=== PATIENT | male | born 1990 | race Caucasian/White ===

== ENCOUNTER 2017-11-15 13:07 | Emergency (ER) | payer SELFPAY ==
[2017-11-15 13:38] LABS: POC GLUCOSE 83 mg/dL (70-99)
[2017-11-15] MEDS: ONDANSETRON PF 4 MG/2 ML VIAL. IV (14:00)
[2017-11-15 14:23] LABS: ADD MAN DIFF? NO
[2017-11-15 14:27] LABS: BASO % 0 % (0-3); EOS % 0 % (0-3); HEMATOCRIT 43.3 % (39.0-53.0); HEMOGLOBIN 14.3 g/dL (13.0-17.5); LYMPH # 1.6 x10^3/uL (1.0-4.8); LYMPH % 16 % (24-48); MEAN CORPUSCULAR HEMOGLOBIN 30 pg (25-35); MEAN CORPUSCULAR HGB CONC 33 g/dL (31-37); MEAN CORPUSCULAR VOLUME 90 fL (79-100); MONO # 0.6 x10^3/uL (0.0-1.1); MONO % 6 % (0-9); NEUT # 7.9 x10^3uL (1.8-7.7); NEUT % 78 % (31-73); PLATELET COUNT 326 x10^3/uL (140-400); RED BLOOD COUNT 4.81 x10^6/uL (4.30-5.70); RED CELL DISTRIBUTION WIDTH 14.3 % (11.5-14.5); WHITE BLOOD COUNT 10.1 x10^3/uL (4.0-11.0)
[2017-11-15 14:36] LABS: LI 0.6 mmol/L (0.6-1.2)
[2017-11-15] MEDS: IV NORMAL SALINE 1000ML BAG 1,000 ML IV (14:36)
[2017-11-15 14:40] LABS: ANION GAP 5 (6-14); BLOOD UREA NITROGEN 8 mg/dL (8-26); CALCIUM 8.8 mg/dL (8.5-10.1); CARBON DIOXIDE 30 mmol/L (21-32); CHLORIDE 107 mmol/L (98-107); GFR 88.3; GLUCOSE 72 mg/dL (70-99); POTASSIUM 4.3 mmol/L (3.5-5.1); SODIUM 142 mmol/L (136-145)
[2017-11-15 14:42] LABS: D-DIMER 0.36 ug/mlFEU (0.00-0.50)
[2017-11-15] MEDS: 0.9 % SODIUM CHLORIDE 10 ML DISP.SYRIN. IV (14:42)
[2017-11-15 14:43] LABS: ALBUMIN 3.5 g/dL (3.4-5.0); ALK PHOS 52 U/L (46-116); ALT (SGPT) 26 U/L (16-63); AST (SGOT) 14 U/L (15-37); DIRECT BILIRUBIN < 0.1 mg/dL (0.0-0.2); LIPASE 86 U/L (73-393); MAGNESIUM 1.9 mg/dL (1.8-2.4); TOTAL BILIRUBIN 0.3 mg/dL (0.2-1.0); TOTAL PROTEIN 6.7 g/dL (6.4-8.2)
[2017-11-15 14:46] LABS: TROPONINI < 0.017 ng/mL (0.000-0.055)
[2017-11-15 14:50] LABS: CKMB INDEX 1.1 % (0-4); CKMB MASS 1.4 ng/mL (0.0-3.6); CREATINE KINASE 130 U/L (39-308)
[2017-11-15 14:50] LABS: NT-PRO BNP 9 pg/mL (0-124); THYROID STIM HORMONE (TSH) 0.506 uIU/mL (0.358-3.74)
[2017-11-15 16:03] LABS: BILIRUBIN,URINE NEGATIVE (NEG); CLARITY,URINE CLEAR; GLUCOSE,URINE NEGATIVE (NEG); NITRITE,URINE NEGATIVE (NEG); PH,URINE 7.5; PROTEIN,URINE NEGATIVE (NEG-TRACE)
[2017-11-15 16:13] LABS: BARBITURATES NEG (NEG); BENZODIAZEPINES POS (NEG); CANNABINOIDS POS (NEG); COCAINE NEG (NEG); METHADONE NEG (NEG); OPIATES NEG (NEG); PHENCYCLIDINE NEG (NEG)
[2017-11-15 16:14] LABS: AMPHETAMINE/METHAMPHETAMINE NEG (NEG); ETHANOL, URINE NEG (NEG)
[2017-11-15 16:21] LABS: RBC,URINE OCC /HPF (0-2)
[2017-11-15 16:22] LABS: BACTERIA,URINE 0 /HPF (0-FEW); COLOR,URINE STRAW; WBC,URINE 0 /HPF (0-4)
== END 2017-11-15 16:51 | disposition home or self-care (01) ==
LOC: ER 13:07
DX: R55 Syncope and collapse (principal); E86.0 Dehydration; F31.9 Bipolar disorder, unspecified; G90.50 Complex regional pain syndrome I, unspecified; I10 Essential (primary) hypertension; F12.10 Cannabis abuse, uncomplicated; Z79.899 Other long term (current) drug therapy
CPT/HCPCS: 36415; 70450; 71045; 80048; 80076; 80178; 80307; 81001; 82553; 82962; 83690; 83735; 83880; 84443; 84484; 85025; 85379; 93005; 96360; 99285-25; J7030